=== PATIENT | female | born 1950 | race Caucasian/White ===

== ENCOUNTER → 2017-06-04 | Emergency (ER) | payer OTHER ==
[~2017-06-04] VITALS: Ht 160 cm; Wt 81.6 kg
[~2017-06-04] MED LIST: LOSARTAN POTASS50 MG; SINGULAIR10 MG; XANAX1 MG
== END | disposition home or self-care (01) ==
LOC: ER 18:27
DX: S70.01XA Contusion of right hip, initial encounter (principal); S90.01XA Contusion of right ankle, initial encounter; W18.09XA Striking against other object with subsequent fall, initial encounter; Y93.89 Activity, other specified; Y92.018 Other place in single-family (private) house as the place of occurrence of the external cause; Y99.8 Other external cause status

== ENCOUNTER 2019-04-05 13:45 | Emergency (ER) | payer OTHER ==
[~2019-04-05] VITALS: Ht 160 cm; Wt 83.9 kg
[2019-04-05] MEDS ORDERED: NAMENDA5 MG (15:19)
[2019-04-05] MEDS ORDERED: ARICEPT10 MG (15:19)
[2019-04-05] MEDS ORDERED: IBERSANTAN (15:20)
[2019-04-05] MEDS ORDERED: SIMBALTA (15:20)
[2019-04-05] MEDS ORDERED: WELLBUTRIN SR100 MG (15:21)
[2019-04-05] MEDS ORDERED: ORPHENADRINE C100 MG PO (19:33)
[2019-04-05] MEDS ORDERED: KETO10TA2 PO (19:33)
== END 2019-04-05 19:41 | disposition home or self-care (01) ==
LOC: ER 13:45
DX: M62.838 Other muscle spasm (principal)

== ENCOUNTER 2020-01-15 18:33 | Emergency (ER) | payer OTHER ==
[~2020-01-15] VITALS: Ht 157.5 cm; Wt 77.1 kg
[~2020-01-15 18:33] MED LIST changes: +ARICEPT10 MG; +IBERSANTAN; +KETO10TA2 PO; +NAMENDA5 MG; +ORPHENADRINE C100 MG PO; +SIMBALTA; +WELLBUTRIN SR100 MG
[2020-01-16] MEDS ORDERED: DOLOGESIC-DF 51 EACH PO (03:55)
== END 2020-01-16 04:03 | disposition home or self-care (01) ==
LOC: ER 18:33 → CPU-OBS 18:46 → ER 18:46
DX: R07.89 Other chest pain (principal); Z20.828 Contact with and (suspected) exposure to other viral communicable diseases

== ENCOUNTER 2020-05-18 15:03 | Emergency (ER) | payer OTHER ==
[~2020-05-18] VITALS: Ht 162.6 cm; Wt 77.1 kg
[~2020-05-18 15:03] MED LIST changes: +DOLOGESIC-DF 51 EACH PO
[2020-05-18] MEDS ORDERED: ATORVASTATIN CA20 MG PO (15:36)
[2020-05-18] MEDS ORDERED: PROAIR HFA8.5 GM IH (15:36)
[2020-05-18] MEDS ORDERED: IRBESARTAN-HCT1 EAC1 PO (15:37)
[2020-05-18] MEDS ORDERED: MONTELUKAST SOD10 MG PO (15:37)
[2020-05-18] MEDS ORDERED: MEMANTINE HCL10 MG PO (15:37)
== END 2020-05-18 19:21 | disposition home or self-care (01) ==
LOC: ER 15:03
DX: M51.37 Other intervertebral disc degeneration, lumbosacral region (principal); R07.89 Other chest pain

== ENCOUNTER 2020-12-10 21:14 | Emergency (ER) | payer OTHER ==
[~2020-12-10] VITALS: Ht 160 cm; Wt 84.8 kg
[~2020-12-10 21:14] MED LIST changes: +ATORVASTATIN CA20 MG PO; +IRBESARTAN-HCT1 EAC1 PO; +MEMANTINE HCL10 MG PO; +MONTELUKAST SOD10 MG PO; +PROAIR HFA8.5 GM IH
[2020-12-10] MEDS ORDERED: DONEPEZIL HCL10 MG PO (22:18)
== END 2020-12-10 23:30 | disposition home or self-care (01) ==
LOC: ER 21:14
DX: M25.512 Pain in left shoulder (principal)

== ENCOUNTER 2021-03-28 23:08 | Emergency (ER) | payer OTHER ==
[~2021-03-28] VITALS: Ht 160 cm; Wt 78.0 kg
[~2021-03-28 23:08] MED LIST changes: +DONEPEZIL HCL10 MG PO
[2021-03-28] MEDS ORDERED: KETO10TA2 (23:23)
[2021-03-28] MEDS ORDERED: NEURONTIN600 M1 PO (23:23)
== END 2021-03-29 01:10 | disposition home or self-care (01) ==
LOC: ER 23:08
DX: M94.0 Chondrocostal junction syndrome [Tietze] (principal); I10 Essential (primary) hypertension